=== PATIENT | female | born 1965 | race Caucasian/White ===

== ENCOUNTER 2019-05-28 10:54 | Emergency (ER) | payer MEDICAID | END 2019-05-28 12:45 | disposition home or self-care (01) | LOC: NAV ERS 10:54 | DX: J06.9 Acute upper respiratory infection, unspecified (principal); M79.10 Myalgia, unspecified site; E11.9 Type 2 diabetes mellitus without complications; I10 Essential (primary) hypertension; F17.210 Nicotine dependence, cigarettes, uncomplicated | CPT/HCPCS: 87804; 99283 ==

== ENCOUNTER 2024-03-08 08:09 | Emergency (ER) | payer OTHER ==
[2024-03-08 09:08] LABS: #Basophils 0.1 thou/uL (0.0-0.2); #Eosinophils 0.4 thou/uL (0.0-0.7); #Lymphocytes 3.9 thou/uL (1.20-3.40); #Monocytes 0.6 thou/uL (0.11-0.59); #Neutrophils 3.6 thou/uL (1.40-6.50); %Eosinophils 4.2 % (0.0-10.0); %Lymphocytes 45.4 % (21.0-51.0); %Monocytes 7.4 % (0.0-10.0); Hematocrit 36.6 % (36.0-47.0); Mean Corpuscular HGB CONC 32.7 g/dL (32.0-36.0); Mean Corpuscular Hemoglobin 31.3 pg (27.0-31.0); Mean Corpuscular Volume 95.6 fl (78.0-98.0); Mean Platelet Volume 7.1 fL (7.4-10.4); Platelet Count 247 10x3/uL (130-400); RBC Distribution Width 12.4 % (11.5-14.5); Red Blood Cell (RBC) Count 3.82 mill/uL (4.20-5.40); White Blood Cell (WBC) Count 8.5 10x3/uL (4.8-10.8)
[2024-03-08] MEDS ORDERED: Nitroglycerin 2% Ointment 1 INCH/1 GM Packet ONE (09:17)
[2024-03-08 09:22] LABS: Potassium 6.1 mmol/L (3.5-5.1)
[2024-03-08] MEDS ORDERED: Clopidogrel Bisulfate 75 MG TAB ONE (09:23)
[2024-03-08] MEDS ORDERED: Furosemide 40 MG (4 mL) VIAL ONE (09:24)
[2024-03-08 09:27] LABS: Troponin I Less than 0.010 ng/mL (< 0.028)
[2024-03-08 09:28] LABS: ALT (SGPT) 47 U/L (8-55); AST (SGOT) 20 U/L (5-34); Albumin 3.3 g/dL (3.5-5.0); Alkaline Phosphatase 131 U/L (40-110); Anion Gap 16 mmol/L (10-20); BUN (Urea Nitrogen) 33 mg/dL (9.8-20.1); Bilirubin, Total 0.2 mg/dL (0.2-1.2); Calc. Creatinine Clearance 0 mL/min (70-130); Calcium 9.1 mg/dL (7.8-10.44); Carbon Dioxide 17 mmol/L (22-29); Chloride 107 mmol/L (98-107); Estimated GFR 35; Globulin 4.1 g/dL (2.4-3.5); Glucose 164 mg/dL (70-105); Protein, Total 7.4 g/dL (6.0-8.3); Sodium 134 mmol/L (136-145)
[2024-03-08 12:31] LABS: Anion Gap 12 mmol/L (10-20); BUN (Urea Nitrogen) 30 mg/dL (9.8-20.1); Calc. Creatinine Clearance 0 mL/min (70-130); Calcium 9.5 mg/dL (7.8-10.44); Carbon Dioxide 19 mmol/L (22-29); Chloride 110 mmol/L (98-107); Estimated GFR 35; Glucose 213 mg/dL (70-105); Potassium 5.4 mmol/L (3.5-5.1); Sodium 136 mmol/L (136-145)
[2024-03-08 12:37] LABS: Troponin I Less than 0.010 ng/mL (< 0.028)
[2024-03-08] MEDS ORDERED: Sodium Polystyrene Sulfonate 15 GM (60 mL) BOT ONE (12:52)
[2024-03-08] MEDS ORDERED: Insulin Regular, Human 100 UNIT/ML 10 ML VIAL ONE (13:43)
== END 2024-03-08 19:33 | disposition short-term general hospital (02) ==
LOC: NAV ERS 08:09
DX: E87.5 Hyperkalemia (principal); N28.9 Disorder of kidney and ureter, unspecified; R07.9 Chest pain, unspecified; E11.65 Type 2 diabetes mellitus with hyperglycemia; E86.0 Dehydration; I10 Essential (primary) hypertension; F17.210 Nicotine dependence, cigarettes, uncomplicated; Z79.899 Other long term (current) drug therapy
CPT/HCPCS: 36415; 36416; 71045; 80053; 83880; 84484; 85025; 93005; 96374; 96375; J1815; J1940

== ENCOUNTER 2024-05-17 09:02 | Emergency (ER) | payer OTHER | END 2024-05-17 09:35 | disposition home or self-care (01) | LOC: NAV ERS 09:02 | DX: E11.9 Type 2 diabetes mellitus without complications (principal); I10 Essential (primary) hypertension; F17.210 Nicotine dependence, cigarettes, uncomplicated; Z76.0 Encounter for issue of repeat prescription | CPT/HCPCS: 36416; 99282 ==

== ENCOUNTER 2024-12-10 16:50 | Emergency (ER) | payer OTHER ==
[2024-12-10 18:16] LABS: Hematocrit 38.7 % (36.0-47.0); Hemoglobin 13.5 g/dL (12.0-16.0); Mean Corpuscular Hemoglobin 31.3 pg (27.0-31.0); Mean Corpuscular Volume 89.4 fl (78.0-98.0); Platelet Count 240 10x3/uL (130-400); Red Blood Cell (RBC) Count 4.32 mill/uL (4.20-5.40); White Blood Cell (WBC) Count 16.4 10x3/uL (4.8-10.8)
[2024-12-10 18:26] LABS: ALT (SGPT) 17 U/L (Less than 34); AST (SGOT) 29 U/L (11-34); Albumin 4.1 g/dL (3.1-4.5); Alkaline Phosphatase 118 U/L (40-110); Anion Gap 18 mmol/L (10-20); BUN (Urea Nitrogen) 42 mg/dL (9.8-20.1); Bilirubin, Total 0.3 mg/dL (0.3-1.2); Calc. Creatinine Clearance 0 mL/min (70-130); Calcium 9.5 mg/dL (7.8-10.44); Carbon Dioxide 15 mmol/L (22-29); Chloride 108 mmol/L (98-107); Globulin 4.1 g/dL (2.4-3.5); Glucose 95 mg/dL (70-105); Lipase 51 U/L (8-78); Potassium 4.5 mmol/L (3.5-5.1); Sodium 136 mmol/L (136-145)
[2024-12-10 18:54] LABS: Glucose, Urine (Dipstick) Negative (Negative); Leukocyte Moderate (Negative); Protein, Urine (Dipstick) > or equal to 300 mg/dL (Neg-Trace); Specific Gravity, Urine 1.015 (1.005-1.030)
[2024-12-10 18:55] LABS: MDiff Complete? YES
[2024-12-10 19:00] LABS: Platelet Adequacy Comment Appears Adequate; Toxic Granulation SLIGHT
[2024-12-10 19:07] LABS: Bacteria/HPF 3+ HPF (None Seen); CAUTI Indications for Culture Pelvic or flank pain; RBC/HPF 0-3 HPF (0-3); WBC/HPF 21-50 HPF (0-3); Yeast-Budding 1+ HPF (None Seen)
[2024-12-10 19:08] LABS: Urine Culture Reflex Yes Yes
[2024-12-10] MEDS ORDERED: Cefepime 2 GM VIAL ONE (20:22)
[2024-12-10] MEDS ORDERED: metroNIDAZOLE 500 MG (100 mL) BAG ONE (20:22)
[2024-12-11] MEDS ORDERED: Acetaminophen 325 MG TAB ONE (05:23)
[2024-12-11] MEDS ORDERED: Losartan 50 MG TAB ONE (05:23)
[2024-12-11] MEDS ORDERED: Cefepime 2 GM VIAL ONE (08:40)
[2024-12-11] MEDS ORDERED: Pantoprazole 40 MG VIAL ONE (10:46)
[2024-12-12 00:55] LABS: Campy jejuni + coli by PCR Negative (Negative); STEC Shiga Toxin 1+2 Negative (Negative); Salmonella spp. by PCR Negative (Negative); Shigella spp + EIEC by PCR Negative (Negative)
== END 2024-12-11 14:31 | disposition short-term general hospital (02) ==
LOC: NAV ERS 16:50
DX: K52.9 Noninfective gastroenteritis and colitis, unspecified (principal); E86.0 Dehydration; N30.90 Cystitis, unspecified without hematuria; N28.9 Disorder of kidney and ureter, unspecified; E11.9 Type 2 diabetes mellitus without complications; I10 Essential (primary) hypertension; F17.210 Nicotine dependence, cigarettes, uncomplicated; Z79.4 Long term (current) use of insulin; Z79.899 Other long term (current) drug therapy
CPT/HCPCS: 36416; 74176; 80053; 81001; 83690; 85025; 87086; 87505; 96361; 96374; 96375; 96376; J0692; J2270; J2272; J2470; J7030